=== PATIENT | female | born 1950 | race Hispanic/Latino ===

== ENCOUNTER 2019-02-22 12:45 | Emergency (ER) | payer MEDICARE, OTHER ==
[2019-02-22] MEDS ORDERED: HYDROCODONE/APAP 7.5/325 MG TAB ONE (16:10)
--- NOTE | 2019-02-22 16:26 | RAD REPORT ---
EXAM DESCRIPTION: Ribs Right - 02/22/2019 4:18 pm CLINICAL HISTORY: Right rib pain FINDINGS: Cortical irregularity involves the right ninth lateral rib equivocal for a nondisplaced fr acture. No additional fracture seen
--- NOTE | 2019-02-22 16:28 | RAD REPORT ---
EXAM DESCRIPTION: Terry Single View02/22/2019 4:17 pm CLINICAL HISTORY: Chest pain COMPARISON: none FINDINGS: The lungs appear clear of acute infiltrate. The heart is normal size IMPRESSION: No acute abnormalities displayed
--- NOTE | 2019-02-22 18:07 | ER ---
Nurse's Notes [facility] Name: Ashley Mendes Age: 68 yrs Sex: Female : 1950 Arrival Date: 02/22/2019 Time: 12:48 Bed 15 Private MD: Diagnosis: Fracture of one rib, right side Presentation: 02/22 13:06 Presenting complaint: Patient states: i lost my balance and fell this morning, i went tw2 back to turn and tripped over the tire and landed on my RIGHT lower back and landed on the tire and my rib area hurts, my doctor couldn't see me until tomorrow and i didn't want to wait. Transition of care: patient was not received from another setting of care. Onset of symptoms was February 22, 2019. Risk Assessment: Do you want to hurt yourself or someone else? Patient reports no desire to harm self or others. Initial Sepsis Screen: Does the patient meet any 2 criteria? No. Patient's initial sepsis screen is negative. Does the patient have a suspected source of infection? No. Patient's initial sepsis screen is negative. Care prior to arrival: None. 13:06 Method Of Arrival: Ambulatory tw2 13:06 Acuity: RACHAEL 4 tw2 Triage Assessment: 13:07 General: Appears in no apparent distress. well groomed, Behavior is calm, cooperative, tw2 appropriate for age. Pain: Complains of pain in right lower back and right ribs. Musculoskeletal: Range of motion: intact in all extremities, pt refused w/c in lobby states "i want to walk just getting up is a little sore". Historical: - Allergies: 13:11 Iodine; tw2 - Home Meds: 13:11 pioglitazone 45 mg oral tab 1 tab once daily [Active]; metformin 1,000 mg Oral tr24 1 tw2 tab twice daily [Active]; lisinopril-hydrochlorothiazide 20-25 mg oral tab 1 tab once daily [Active]; atorvastatin 40 mg oral tab 1 tab once daily [Active]; metoprolol tartrate 25 mg Oral tab 1 tab once daily [Active]; gabapentin 100 mg oral cap 1 caps twice DAILY [Active]; glipizide 10 mg Oral tab 1 tab once daily [Active]; - PMHx: 13:11 Diabetes - NIDDM; Hypertension; tw2 - Immunization history:: Adult Immunizations. - Social history:: Smoking status: . - Ebola Screening: : Patient denies travel to an Ebola-affected area in the 21 days before illness onset. Screenin:32 Abuse screen: Denies threats or abuse. Denies injuries from another. Nutritional ls4 screening: No deficits noted. Tuberculosis screening: No symptoms or risk factors identified. Fall Risk None identified. Assessment: 15:36 General: Appears in no apparent distress. comfortable. Pain: Complains of pain in right ls4 lateral posterior chest and right mid back Pain currently is 8 out of 10 on a pain scale. 15:36 Neuro: Level of Consciousness is awake, alert, obeys commands. Cardiovascular: Denies ls4 chest pain, lightheadedness, shortness of breath, Capillary refill < 3 seconds Patient's skin is warm and dry. Respiratory: Reports pain with respiration since fall Breath sounds are clear bilaterally. Derm: No deficits noted. Musculoskeletal: Circulation, motion, and sensation intact. Capillary refill < 3 seconds, Range of motion: intact in all extremities. 16:35 Reassessment: Patient and/or family updated on plan of care and expected duration. Pain ls4 level reassessed. Patient is alert, oriented x 3, equal unlabored respirations, skin warm/dry/pink. 17:32 Reassessment: Patient and/or family updated on plan of care and expected duration. Pain ls4 level reassessed. Patient is alert, oriented x 3, equal unlabored respirations, skin warm/dry/pink. 18:22 Reassessment: Patient and/or family updated on plan of care and expected duration. Pain ls4 level reassessed. Patient is alert, oriented x 3, equal unlabored respirations, skin warm/dry/pink. Vital Signs: 13:08 BP 146 / 71; Pulse 69; Resp 17; Temp 98.0(O); Pulse Ox 99% on R/A; Weight 88.45 kg (R); tw2 Height 5 ft. 6 in. (167.64 cm); Pain 8/10; 15:36 BP 112 / 60; Pulse 72; Resp 16; Pulse Ox 99% on R/A; Pain 5/10; ls4 16:32 BP 126 / 74; Pulse 71; Resp 16; Pulse Ox 99% on R/A; Pain 8/10; ls4 17:43 BP 128 / 86; Pulse 70; Resp 16; Temp 98.4; Pulse Ox 99% on R/A; Pain 3/10; ls4 13:08 Body Mass Index 31.47 (88.45 kg, 167.64 cm) tw2 Trauma Score (Adult): 15:36 Eye Response: spontaneous(1); Verbal Response: oriented(1); Motor Response: obeys ls4 commands(2); Systolic BP: > 89 mm Hg(4); Respiratory Rate: 10 to 29 per min(4); [place] Score: 15; Trauma Score: 12 18:21 Eye Response: spontaneous(1); Verbal Response: oriented(1); Motor Response: obeys ls4 commands(2); Systolic BP: > 89 mm Hg(4); Respiratory Rate: 10 to 29 per min(4); [place] Score: 15; Trauma Score: 12 ED Course: 12:48 Patient arrived in ED. rg4 13:07 Triage completed. tw2 13:07 Arm band placed on. tw2 15:34 Wagner Bland MD is Attending Physician. kdr 15:51 Lisandra Crook, RAQUEL is Primary Nurse. ls4 16:18 CXR XRAY In Process Unspecified. EDMS 16:18 Ribs Right XRAY In Process Unspecified. EDMS 16:32 Bed in low position. Call light in reach. Side rails up X 1. Pulse ox on. NIBP on. ls4 16:32 No provider procedures requiring assistance completed. Patient did not have IV access ls4 during this emergency room visit. Administered Medications: 16:02 Drug: [place] (7.5 mg-325 mg) 1 tabs Route: PO; ls4 16:32 Follow up: Response: No adverse reaction; Marked relief of symptoms ls4 Outcome: 18:06 Discharge ordered by . kdr 18:21 Discharged to home ambulatory, with family. ls4 18:21 Condition: stable 18:21 Discharge instructions given to patient, family, Instructed on discharge instructions, follow up and referral plans. medication usage, safety practices, Demonstrated understanding of instructions, follow-up care, medications, Prescriptions given X 1. 18:23 Patient left the ED. ls4 Signatures: Dispatcher [employer] EDNV Wagner Bland MD MD kdr Roselia Bee RN RN tw2 Jaylin Castellanos rg4 Lisandra Crook, RN RN ls4
--- NOTE | 2019-02-22 18:07 | EDPHYS ---
Physician Documentation [facility] Name: Ashley Mendes Age: 68 yrs Sex: Female : 1950 Arrival Date: 02/22/2019 Time: 12:48 Bed 15 Private MD: ED Physician Wagner Bland HPI: 02/22 15:40 This 68 yrs old Female presents to ER via Ambulatory with complaints of Fall kdr Injury. 15:40 Details of fall: The patient fell from an upright position, while standing. Onset: The kdr symptoms/episode began/occurred suddenly, this morning. Associated injuries: The patient sustained injury to the chest, contusion, ecchymosis, tenderness, Posterior thorax. Severity of symptoms: At their worst the symptoms were mild. The patient has not experienced similar symptoms in the past. The patient has not recently seen a physician. Historical: - Allergies: 13:11 Iodine; tw2 - Home Meds: 13:11 pioglitazone 45 mg oral tab 1 tab once daily [Active]; metformin 1,000 mg Oral tr24 1 tw2 tab twice daily [Active]; lisinopril-hydrochlorothiazide 20-25 mg oral tab 1 tab once daily [Active]; atorvastatin 40 mg oral tab 1 tab once daily [Active]; metoprolol tartrate 25 mg Oral tab 1 tab once daily [Active]; gabapentin 100 mg oral cap 1 caps twice DAILY [Active]; glipizide 10 mg Oral tab 1 tab once daily [Active]; - PMHx: 13:11 Diabetes - NIDDM; Hypertension; tw2 - Immunization history:: Adult Immunizations. - Social history:: Smoking status: . - Ebola Screening: : Patient denies travel to an Ebola-affected area in the 21 days before illness onset. ROS: 15:40 Constitutional: Negative for fever, chills, and weight loss, Eyes: Negative for injury, kdr pain, redness, and discharge, ENT: Negative for injury, pain, and discharge, Neck: Negative for injury, pain, and swelling, Cardiovascular: Negative for chest pain, palpitations, and edema, Respiratory: Negative for shortness of breath, cough, wheezing, and pleuritic chest pain, Abdomen/GI: Negative for abdominal pain, nausea, vomiting, diarrhea, and constipation, : Negative for injury, bleeding, discharge, and swelling, MS/Extremity: Negative for injury and deformity, Skin: Negative for injury, rash, and discoloration, Neuro: Negative for headache, weakness, numbness, tingling, and seizure activity. Psych: Negative for depression, anxiety, suicide ideation, homicidal ideation, and hallucinations, Allergy/Immunology: Negative for hives, rash, and allergies, Endocrine: Negative for neck swelling, polydipsia, polyuria, polyphagia, and marked weight changes, Hematologic/Lymphatic: Negative for swollen nodes, abnormal bleeding, and unusual bruising. 15:40 Back: Positive for pain at rest, pain with movement, of the right mid back. Exam: 15:40 Constitutional: This is a well developed, well nourished patient who is awake, alert, kdr and in no acute distress. Head/Face: Normocephalic, atraumatic. Eyes: Pupils equal round and reactive to light, extra-ocular motions intact. Lids and lashes normal. Conjunctiva and sclera are non-icteric and not injected. Cornea within normal limits. Periorbital areas with no swelling, redness, or edema. Neck: Trachea midline, no thyromegaly or masses palpated, and no cervical lymphadenopathy. Supple, full range of motion without nuchal rigidity, or vertebral point tenderness. No Meningismus. Cardiovascular: Regular rate and rhythm with a normal S1 and S2. No gallops, murmurs, or rubs. Normal PMI, no JVD. No pulse deficits. Respiratory: Lungs have equal breath sounds bilaterally, clear to auscultation and percussion. No rales, rhonchi or wheezes noted. No increased work of breathing, no retractions or nasal flaring. Abdomen/GI: Soft, non-tender, with normal bowel sounds. No distension or tympany. No guarding or rebound. No evidence of tenderness throughout. Back: No spinal tenderness. No costovertebral tenderness. Full range of motion. Skin: Warm, dry with normal turgor. Normal color with no rashes, no lesions, and no evidence of cellulitis. MS/ Extremity: Pulses equal, no cyanosis. Neurovascular intact. Full, normal range of motion. Neuro: Awake and alert, GCS 15, oriented to person, place, time, and situation. Cranial nerves II-XII grossly intact. Motor strength 5/5 in all extremities. Sensory grossly intact. Cerebellar exam normal. Normal gait. Psych: Awake, alert, with orientation to person, place and time. Behavior, mood, and affect are within normal limits. 15:40 Chest/axilla: Inspection: abrasion, ecchymosis, that is mild, of the right lateral posterior chest Palpation: crepitus, is not appreciated, tenderness, that is mild, of the right lateral posterior chest. Vital Signs: 13:08 BP 146 / 71; Pulse 69; Resp 17; Temp 98.0(O); Pulse Ox 99% on R/A; Weight 88.45 kg (R); tw2 Height 5 ft. 6 in. (167.64 cm); Pain 8/10; 15:36 BP 112 / 60; Pulse 72; Resp 16; Pulse Ox 99% on R/A; Pain 5/10; ls4 16:32 BP 126 / 74; Pulse 71; Resp 16; Pulse Ox 99% on R/A; Pain 8/10; ls4 17:43 BP 128 / 86; Pulse 70; Resp 16; Temp 98.4; Pulse Ox 99% on R/A; Pain 3/10; ls4 13:08 Body Mass Index 31.47 (88.45 kg, 167.64 cm) tw2 Trauma Score (Adult): 15:36 Eye Response: spontaneous(1); Verbal Response: oriented(1); Motor Response: obeys ls4 commands(2); Systolic BP: > 89 mm Hg(4); Respiratory Rate: 10 to 29 per min(4); [place] Score: 15; Trauma Score: 12 18:21 Eye Response: spontaneous(1); Verbal Response: oriented(1); Motor Response: obeys ls4 commands(2); Systolic BP: > 89 mm Hg(4); Respiratory Rate: 10 to 29 per min(4); [place] Score: 15; Trauma Score: 12 MDM: 15:40 Data reviewed: vital signs, nurses notes, radiologic studies. Counseling: I had a kdr detailed discussion with the patient and/or guardian regarding: the historical points, exam findings, and any diagnostic results supporting the discharge/admit diagnosis, radiology results, the need for outpatient follow up. 18:06 Patient medically screened. [facility] 02/22 15:40 Order name: CXR XRAY; Complete Time: 18:06 kdr 02/22 15:40 Order name: Mauro Right XRAY; Complete Time: 18:06 kdr Administered Medications: 16:02 Drug: [place] (7.5 mg-325 mg) 1 tabs Route: PO; ls4 16:32 Follow up: Response: No adverse reaction; Marked relief of symptoms ls4 Disposition: 02/22/19 18:06 Discharged to Home. Impression: Fracture of one rib, right side. - Condition is Stable. - Discharge Instructions: Rib Fracture, [id number]. - Prescriptions for Tylenol- Codeine #4 300-60 mg Oral Tablet - take 1 tablet by ORAL route every 6 hours As needed; 16 tablet. - Medication Reconciliation Form, Thank You Letter, Prescription Opioid Use form. - Follow up: Private Physician; When: 2 - 3 days; Reason: If symptoms return, Further diagnostic work-up, Recheck today's complaints, Continuance of care, Re-evaluation by your physician. Signatures: Dispatcher [employer] EDMS Wagner Bland MD MD kdr Roselia Bee RN RN tw2 Lisandra Crook RN RN ls4 Corrections: (The following items were deleted from the chart) 18:23 18:06 02/22/2019 18:06 Discharged to Home. Impression: Fracture of one rib, right side. ls4 Condition is Stable. Forms are Medication Reconciliation Form, Thank You Letter, Antibiotic Education, Prescription Opioid Use. Follow up: Private Physician; When: 2 - 3 days; Reason: If symptoms return, Further diagnostic work-up, Recheck today's complaints, Continuance of care, Re-evaluation by your physician. kdr
== END 2019-02-22 18:23 | disposition home or self-care (01) ==
LOC: ER 12:45
DX: S22.31XA Fracture of one rib, right side, initial encounter for closed fracture (principal); W19.XXXA Unspecified fall, initial encounter; Y93.9 Activity, unspecified; Y92.9 Unspecified place or not applicable; Z91.048 Other nonmedicinal substance allergy status; I10 Essential (primary) hypertension; E11.9 Type 2 diabetes mellitus without complications
CPT/HCPCS: 71045; 99284